=== PATIENT | male | born 1995 | race Caucasian/White ===

== ENCOUNTER 2016-11-26 06:09 | Emergency (ER) | payer OTHER ==
[~2016-11-26] VITALS: Ht 180.3 cm; Wt 91.9 kg
[~2016-11-26 06:09] MED LIST: ACET-1256 PO; ASCA500 PO; IBUP-1050 PO
[2016-11-26 06:11] VITALS: TEMP 36.3; Ht 180.3 cm; Wt 91.9 kg
[2016-11-26 06:22] VITALS: O2SAT 97
[2016-11-26] MEDS ORDERED: KETOROLAC TROMETHAMINE 30 MG/ML VIAL IV STA (06:49)
[2016-11-26 06:56] LABS: BASO % 0.3 %; BASO ABS # 0.03 K/uL (0-0.2); COMPLETE YES; HEMATOCRIT 45.4 % (42-52); IG% 0.1 %; MEAN CELL VOLUME 85.8 fL (80-100); MEAN CORPUSCULAR HGB CONC 36.1 g/dl (32-36); MEAN PLATELET VOLUME 10.2 fL (7.4-10.4); MONO % 10.6 %; PLATELET COUNT 191 K/uL (130-400); RED BLOOD COUNT 5.29 M/uL (4.7-6.1); WHITE BLOOD COUNT 8.94 K/uL (4.8-10.8)
[2016-11-26 07:05] LABS: BUN/CREATININE RATIO 18.4 (10-20); CALCIUM 8.7 mg/dl (8.5-10.1); CREATININE 0.98 mg/dl (0.60-1.40); POTASSIUM 4.1 mmol/L (3.5-5.1)
--- NOTE | 2016-11-26 07:13 | DIAGNOSTIC IMAGING REPORT ---
CHEST ONE VIEW PORTABLE CLINICAL HISTORY: Right-sided chest pain. COMPARISON STUDY: No previous studies for comparison. FINDINGS: Lung volumes are normal. Lungs are clear. There is no pneumothorax or pleural effusion. Cardiac size is normal. Mediastinal contours are normal. There is no evidence of pulmonary edema. IMPRESSION: No acute cardiopulmonary findings. Electronically signed by: Denzel Ruiz M.D. 11/26/2016 7:11 AM Dictated Date/Time: 11/26/2016 7:10 AM
--- NOTE | 2016-11-26 07:28 | EMERGENCY ROOM VISIT NOTE ---
History Report prepared by Salima: Deyanira Pond Under the Supervision of: Dr. Dewey Rosales D.O. First contact with patient: 06:30 Chief Complaint: CHEST PAIN Stated Complaint: SHOOTING CHEST PAIN Nursing Triage Summary: c/o right sided chest pain for 1 hr. " thinks it may be my muscles." denies pain with deep inspiration. History of Present Illness The patient is a 21 year old male who presents to the Emergency Room with complaints of persistent right sided chest pain starting at 0530 this morning. He awoke to the pain in his chest which he describes as sharp. He has never had this pain before. The pain worsens with movement of his arms and neck. Breathing does not affect his pain. He tried stretching which relieved his pain briefly, but then it returned with movement. He admits to smoking 1 pack per day. He denies any calf swelling. He denies any history of blood clots, diabetes , hypertension, HLD, or cancer. He denies any recent travel, trauma, hemoptysis , recent surgeries, or heavy lifting. He denies any history of sudden in his family. Source of History: patient Onset: 0530 this morning Position: chest (right) Quality: sharp Timing: other (persistent) Modifying Factors (Worsening): movement (of arms, neck) Note: Pt denies calf swelling. Review of Systems See HPI for pertinent positives & negatives. A total of 10 systems reviewed and were otherwise negative. Past Medical & Surgical Medical Problems: (1) Asthma Family History Diabetes mellitus FH: cancer FH: heart disease Hypertension Social History Smoking Status: Current Every Day Smoker Alcohol Use: occasionally Marital Status: single Occupation Status: [employer] student Current/Historical Medications No Active Prescriptions or Reported Meds Allergies Coded Allergies: No Known Allergies (Unverified , 11/26/16) Physical Exam Vital Signs Date Time Temp Pulse Resp B/P Pulse Ox O2 Delivery O2 Flow Rate FiO2 11/26/16 08:34 60 16 115/47 98 11/26/16 07:48 62 16 109/51 11/26/16 06:30 73 18 131/70 97 Room Air 11/26/16 06:28 96 Room Air 11/26/16 06:23 69 11/26/16 06:22 97 Room Air 11/26/16 06:11 36.3 76 20 125/65 100 Room Air Physical Exam GENERAL: sitting up in bed, disheveled, no acute distress. Moderate pain with movement of right chest wall. EYE EXAM: normal conjunctiva OROPHARYNX: no exudate, no erythema, lips, buccal mucosa, and tongue normal and mucous membranes are moist NECK: supple, no nuchal rigidity, no adenopathy, non-tender CHEST: Pain along right chest wall with flexion of neck, flexion of humerus, and extension of humerus beyond 90 degrees. LUNGS: Clear to auscultation. Normal chest wall mechanics HEART: no murmurs, S1 normal and S2 normal ABDOMEN: abdomen soft, non-tender, normo-active bowel sounds, no masses, no rebound or guarding. BACK: Back is symmetrical on inspection and there is no deformity, no midline tenderness, no CVA tenderness. SKIN: no rashes and no bruising UPPER EXTREMITIES: upper extremities are grossly normal. Radial pulse 2/4 on right. LOWER EXTREMITIES: No pitting edema. Calves equal bilaterally. NEURO EXAM: Normal sensorium, cranial nerves II-XII grossly intact, normal speech, no gross weakness of arms, no gross weakness of legs. Medical Decision & Procedures ER Provider Diagnostic Interpretation: Xray results as stated below per the radiologist's and my interpretation: CHEST ONE VIEW PORTABLE CLINICAL HISTORY: Right-sided chest pain. COMPARISON STUDY: No previous studies for comparison. FINDINGS: Lung volumes are normal. Lungs are clear. There is no pneumothorax or pleural effusion. Cardiac size is normal. Mediastinal contours are normal. There is no evidence of pulmonary edema. IMPRESSION: No acute cardiopulmonary findings. Electronically signed by: Denzel Ruiz M.D. 11/26/2016 7:11 AM Dictated Date/Time: 11/26/2016 7:10 AM Laboratory Results 11/26/16 06:22 Red Blood Count 5.29, Mean Corpuscular Volume 85.8, Mean Corpuscular Hemoglobin 31.0, Mean Corpuscular Hemoglobin Concent 36.1, Mean Platelet Volume 10.2, Neutrophils (%) (Auto) 40.0, Lymphocytes (%) (Auto) 47.0, Monocytes (%) (Auto) 10.6, Eosinophils (%) (Auto) 2.0, Basophils (%) (Auto) 0.3, Neutrophils # (Auto ) 3.57, Lymphocytes # (Auto) 4.20, Monocytes # (Auto) 0.95, Eosinophils # (Auto ) 0.18, Basophils # (Auto) 0.03 11/26/16 06:22 Test 11/26/16 06:22 White Blood Count 8.94 K/uL (4.8-10.8) Red Blood Count 5.29 M/uL (4.7-6.1) Hemoglobin 16.4 g/dL (14.0-18.0) Hematocrit 45.4 % (42-52) Mean Corpuscular Volume 85.8 fL (80-100) Mean Corpuscular Hemoglobin 31.0 pg (25-34) Mean Corpuscular Hemoglobin Concent 36.1 g/dl (32-36) Platelet Count 191 K/uL (130-400) Mean Platelet Volume 10.2 fL (7.4-10.4) Neutrophils (%) (Auto) 40.0 % Lymphocytes (%) (Auto) 47.0 % Monocytes (%) (Auto) 10.6 % Eosinophils (%) (Auto) 2.0 % Basophils (%) (Auto) 0.3 % Neutrophils # (Auto) 3.57 K/uL (1.4-6.5) Lymphocytes # (Auto) 4.20 K/uL (1.2-3.4) Monocytes # (Auto) 0.95 K/uL (0.11-0.59) Eosinophils # (Auto) 0.18 K/uL (0-0.5) Basophils # (Auto) 0.03 K/uL (0-0.2) RDW Standard Deviation 40.7 fL (36.4-46.3) RDW Coefficient of Variation 12.9 % (11.5-14.5) Immature Granulocyte % (Auto) 0.1 % Immature Granulocyte # (Auto) 0.01 K/uL (0.00-0.02) D-Dimer 260 ug/L FEU (0-500) Anion Gap 8.0 mmol/L (3-11) Est Creatinine Clear Calc Drug Dose 137.0 ml/min Estimated GFR () 126.3 Estimated GFR (Non- 109.0 BUN/Creatinine Ratio 18.4 (10-20) Calcium Level 8.7 mg/dl (8.5-10.1) Chemistry Specimen Hemolysis Laboratory results per my review. Medications Administered Medications (Trade) Dose Ordered Sig/Kamari Route Start Time Stop Time Status Last Admin Dose Admin Ketorolac Tromethamine (Toradol Inj) 30 mg NOW STAT IV 11/26/16 06:49 11/26/16 06:50 DC 11/26/16 07:03 30 MG ECG Indication: chest pain Rate (beats per minute): 68 Rhythm: sinus rhythm Findings: no ectopy, other (normal axis, normal intervals) ED Course ED COURSE: Vital signs were reviewed and showed normal vitals. The patients medical record was reviewed The above diagnostic studies were performed and reviewed. ED treatments and interventions as stated above. 0632: The patient was evaluated in room A10. A complete history and physical examination was performed. 0649: Toradol Inj 30 mg IV. 0758: Upon reevaluation, the patient is A10. I discussed my findings with the patient and he understands and agrees with the treatment plan. Based on the patients age, coexisting illnesses, exam and lab findings the decision to treat as an outpatient was made. The patient remained stable while under my care. The patient appeared well at the time of discharge. Medical Decision Differential diagnoses includes but is not limited to acute coronary syndrome, myocardial infarction, pericarditis, pulmonary embolus, aortic dissection, pneumonia, pneumothorax, musculoskeletal, shingles, esophageal. Patient is a 21-year-old male who presents the ER for sudden onset of chest pain which woke him up this morning at 5:30 AM. Patient notes that it is located on the right side of his chest and is not associated with any shortness breath or arm pain. He denies any history of diabetes, hypertension, hyperlipidemia, CAD or sudden in his family at a young age. He admits to smoking. He denies any hemoptysis, history of cancer, recent trips, recent surgeries, previous blood clots or swelling of his calves. On exam pain is worsened with flexion or movement of his head along with extension and flexion of the humerus. It is reproducible. He notes it is present with breathing does not worsen or change. EKG was unremarkable. Chest x-ray was normal. CBC along with BMP and d-dimer were negative. He is a low risk for cardiac etiologies and consequently had troponin was not obtained as this was low yield and is clearly musculoskeletal on exam. Patient was given Toradol and had significant improvement. He was discharged follow with his primary care doctor/ [facility]. Discussed with Pt concerning signs and symptoms to watch out for. Pt was instructed to follow up with their PCP and discussed with the patient their option to return to the ED at anytime for persistent or worsening symptoms. The appropriate anticipatory guidance and out-patient management, including indications for return to the emergency department, were explained at length to the patient and understood. Impression Primary Impression: Musculoskeletal chest pain Scribe Attestation The scribe's documentation has been prepared under my direction and personally reviewed by me in its entirety. I confirm that the note above accurately reflects all work, treatment, procedures, and medical decision making performed by me. Departure Information Dispostion Home / Self-Care Prescriptions No Active Prescriptions or Reported Meds Referrals No Doctor, Assigned (PCP) Forms HOME CARE DOCUMENTATION FORM, IMPORTANT VISIT INFORMATION Patient Instructions Chest Pain - [facility], [facility] Additional Instructions Please follow up with your primary care doctor or if you are a student [facility] services with in the next 24 hours. Any worsening of your symptoms, please return to the ED immediately. This includes passing out, worsening chest pain, worsening shortness of breath, weakness or numbness in arms or legs, or fevers greater than 100.4. Please take Motrin or ibuprofen 400 mg 3 times a day as needed for pain. Please refrain from heavy lifting or exertion as this is muscle skeletal chest pain.
[2016-11-26 08:34] VITALS: BP 115/47; PULSE 60; O2SAT 98
== END 2016-11-26 08:35 | disposition home or self-care (01) ==
LOC: C.EDB 06:11 → C.EDA 08:35
DX: R07.89 Other chest pain (principal); F17.210 Nicotine dependence, cigarettes, uncomplicated; Z82.49 Family history of ischemic heart disease and other diseases of the circulatory system